=== PATIENT | female | born 1985 | race Caucasian/White ===

== ENCOUNTER 2019-04-18 15:36 | Emergency (ER) | payer MEDICAID ==
[~2019-04-18] VITALS: Ht 167.6 cm; Wt 126.0 kg
[~2019-04-18 15:36] MED LIST: DOCU-138 PO; IBUP-779 PO; IRON-15 PO
[2019-04-18 15:46] VITALS: BP 145/53
== END 2019-04-18 20:11 | disposition left against medical advice (07) ==
LOC: ER 15:36
DX: Z53.21 Procedure and treatment not carried out due to patient leaving prior to being seen by health care provider (principal)